=== PATIENT | female | born 1985 | race Caucasian/White ===

== ENCOUNTER 2017-06-03 12:58 | Inpatient (IN) | payer OTHER, SELFPAY ==
[2017-06-03] MEDS ORDERED: Acetaminophen 500 MG TAB ONE (13:20)
[2017-06-03] MEDS ORDERED: cefTRIAXone\\ROCEPHIN 2 GM VIAL ONE (13:41)
[2017-06-03 13:47] LABS: Bilirubin Small (Negative); Blood, Urine Trace (Negative); Glucose, Urine (Dipstick) Negative (Negative); Ketone, Urine Negative (Negative); Nitrite Negative (Negative); Protein, Urine (Dipstick) 30 mg/dL (Neg-Trace)
[2017-06-03 13:57] LABS: Bacteria/HPF Rare-Few HPF (None Seen); Hyaline Casts/LPF 0-3 HYALINE CAST LPF (0-3 Hyaline); Squamous Epithelial 0-3 HPF (0-3)
--- NOTE | 2017-06-03 14:27 | RAD ---
Chest 1 view: HISTORY: Cough. FINDINGS: Heart size and mediastinum within normal limits for portable technique. The lungs are clear of any infiltrative process. There are no significant bony findings. IMPRESSION: No active intrathoracic disease. POS: [facility]
[2017-06-03 15:18] LABS: #Monocytes 1.4 thou/uL (0.11-0.59); %Basophils 0.2 % (0.0-1.0); %Eosinophils 0.1 % (0.0-10.0); %Lymphocytes 10.5 % (21.0-51.0); %Monocytes 14.9 % (0.0-10.0); Hematocrit 31.6 % (36.0-47.0); Mean Platelet Volume 6.5 fL (7.4-10.4); Red Blood Cell (RBC) Count 3.34 mill/uL (4.20-5.40); White Blood Cell (WBC) Count 9.4 thou/uL (4.8-10.8)
[2017-06-03 15:37] LABS: Lactic Acid - Sepsis 0.7 mmol/L (0.5-2.2)
[2017-06-03 15:41] LABS: ALT (SGPT) 43 U/L (8-55); AST (SGOT) 26 U/L (5-34); Alkaline Phosphatase 121 U/L (40-150); Anion Gap 13 mmol/L (10-20); BUN (Urea Nitrogen) 6 mg/dL (7.0-18.7); Bilirubin, Total 0.6 mg/dL (0.2-1.2); Calc. Creatinine Clearance 0 mL/min (70-130); Calcium 7.8 mg/dL (7.8-10.44); Carbon Dioxide 22 mmol/L (22-29); Chloride 102 mmol/L (98-107); Estimated GFR-MDRD Greater than 90; Globulin 3.2 g/dL (2.4-3.5); Protein, Total 6.1 g/dL (6.0-8.3)
[2017-06-03] MEDS ORDERED: Loratadine 10 MG TAB PO PRN (15:50)
[2017-06-03] MEDS ORDERED: Milk Of Magnesia 30 ML UDCUP PO PRN (15:50)
[2017-06-03] MEDS ORDERED: Ondansetron ODT 4 MG TAB PO PRN (15:50)
[2017-06-03] MEDS ORDERED: Senokot 8.6 MG TAB PO PRN (15:50)
[2017-06-03] MEDS ORDERED: Sodium Chloride 0.9% 1,000 ML IV SCH (15:50)
[2017-06-03] MEDS ORDERED: Diabetic Tussin 200 MG/10 ML UDCUP PO PRN (15:50)
[2017-06-03] MEDS ORDERED: Artificial Tears 18 DROP/0.9 ML EA EYE PRN (15:50)
[2017-06-03] MEDS ORDERED: Sodium Chloride 0.65% Nasal 44 ML BOT EA NARE PRN (15:50)
[2017-06-03] MEDS ORDERED: HYDROcodone/Acetaminophen 5/325 mg Tablet PO PRN (15:50)
[2017-06-03] MEDS ORDERED: Eucerin (Mineral Oil/Petrolatum,White) 30 gm Jar TOP PRN (15:50)
[2017-06-03] MEDS ORDERED: Ondansetron HCl/PF 4 MG/2 ML Vial IVP PRN (15:50)
[2017-06-03] MEDS ORDERED: Zolpidem Tartrate 5 MG TAB PO PRN (15:50)
[2017-06-03] MEDS ORDERED: Loperamide HCl 2 MG CAP PO PRN (15:50)
[2017-06-03] MEDS ORDERED: Mag-Al 1200 mg/1200 mg/30 ML UDCUP PO PRN (15:50)
[2017-06-03 15:58] VITALS: BMI 22.3
--- NOTE | 2017-06-03 16:36 | HP ---
PRIMARY CARE PHYSICIAN: [facility] call admission. REASON FOR ADMISSION: Sepsis, urinary tract infection, dehydration. HISTORY OF PRESENT ILLNESS: A 32-year-old female who lives in [facility] who came to the emergency room for evaluation of dysuria, increased frequency for the last one week, the patient has symptoms grad ually getting worse, but for the last 2-3 days symptom is more worse. She started having high-grade fever with chills. Her T. maximum was 102.6. The patient took couple of doses of Bactrim DS, but her fever was not subsiding. She was having high-grade fever constantly and that is why they sent h er to the emergency room for evaluation. The patient also reports that for the last couple of days she is having both sides of back pain more on the left side. She denies any hematuria. She denies any diarrhea, but she does report the nausea and poor appetite. She denies any vomiting. There was no specific relieving factor. Patient's fever was temporarily responding to Tylenol, but the fever kept coming back. Patient was also feeling more fatigued, tired, weak and dizzy. At that point, t he patient was brought to the emergency room for evaluation. In the emergency room, this patient wa s febrile with temperature 102.6, tachycardic, relatively hypotensive. Patient was also clinically appeared dehydrated. REVIEW OF SYSTEMS: Please see my HPI for pertinent positives and negatives. All other review of sy stems reviewed and negative except as mentioned in the HPI. Constitutional: Weight loss or gain, ability to conduct usual activities. Skin: Rash, itching. Eyes: Double vision, pain. ENT/Mouth: Nose bleeding, neck stiffness, pain, tenderness. Cardiovascular: Palpitations, dyspnea on exertion, orthopnea. Respiratory: Shortness of breath, wheezing, cough, hemoptysis, fever or night sweats. Gastrointestinal: Poor appetite, abdominal pain, heartburn, nausea, vomiting, constipation, or diar ti. Genitourinary: Urgency, frequency, dysuria, nocturia. Musculoskeletal: Pain, swelling. Neurologic/Psychiatric: Anxiety, depression. Allergy/Immunologic: Skin rash, bleeding tendency. EMERGENCY ROOM COURSE: Patient was given Rocephin 2 gram, IV fluid 1 liter and Tylenol 1 gram. PAST MEDICAL HISTORY: Scoliosis, osteoarthritis. PAST SURGICAL HISTORY: Cholecystectomy, vaginal births x3 and tonsillectomy. PAST PSYCHIATRIC HISTORY: Anxiety and depression. SOCIAL HISTORY: The patient is currently in [facility]. She has history of drug abuse in the past. Evie jc abuses marijuana. She denies any alcohol abuse. She also smokes cigarettes about a half pack per day. FAMILY HISTORY: No strong family history of premature coronary artery disease, stroke or cancer. ALLERGIES: PENICILLIN. CURRENT HOME MEDICATIONS: The patient was recently prescribed Bactrim DS 1 tablet twice daily. Anali fleming was on ibuprofen and Tylenol p.r.n. basis at [facility] system. PHYSICAL EXAMINATION: VITAL SIGNS: On arrival, blood pressure 98/69, pulse 90, respiratory rate 18, temperature 102.6, sa turation 98% on room air, weight 62.05 kilograms. GENERAL: Patient is currently febrile. SKIN: No obvious acute distress. HEAD: Normocephalic, atraumatic. EYES: Pupils round, reactive to light. Extraocular muscles intact. ENT: Oropharynx within normal limits. Dry appearing mucous membranes. No oral lesions. No pharyn geal erythema. No exudate. NECK: Supple. Range of motion is normal. No meningeal signs of irritation. LUNGS: Clear to auscultation without any rhonchi or rales. CARDIAC: S1, S2 regular. No murmur. No gallop. No rub. ABDOMEN: Soft, bowel sounds present, nontender, nondistended. No organomegaly. No mass. No supra pubic discomfort noted. BACK EXAMINATION: CVA tenderness more on the left side as well as CVA tenderness on the right side. EXTREMITIES: Upper extremity passive movement of all joints are normal. Lower extremity, no edema. Good peripheral pulsation. SKIN: No skin rash. HEMATOLOGICAL SYSTEM: No lymphadenopathy. PSYCHIATRIC: Normal affect. NEUROLOGIC: Nonfocal examination. SKIN: No skin rash. SIGNIFICANT LABS AND IMAGINGS: Chest x-ray based on my review, no acute cardiopulmonary process. C BC: WBC 9.4, hemoglobin 10.8, platelets 183,000. BMP: Sodium 134, potassium 3.0, chloride 102, ca rbon dioxide 22, BUN 6, creatinine 0.62, glucose 103, calcium 7.8. LFT: AST 26, ALT 43, alkaline p hosphatase 121, albumin 2.9. Lactic acid 0.7. Urinalysis suggestive of urinary tract infection. ASSESSMENT AND PLAN: 1. Sepsis. The patient has high-grade fever. Patient has fever for the last several days without any significant improvement. Patient was treated with Bactrim DS and patient has failed outpatient therapy. The source of infection is urinary tract given her symptoms and abnormal urinalysis. The patient will be on Rocephin and ciprofloxacin for dual coverage. We will follow up on blood and uri ne culture result and change antibiotic therapy accordingly. Patient will also receive IV fluid. 2. Urinary tract infection with pyelonephritis. This patient has predominantly right-sided pyelone phritis. We will obtain CT stone protocol to rule out any nephrolithiasis. We will follow up on cu lture result. Patient is kept on broad-spectrum antibiotic therapy with Rocephin and Cipro. Her pa in will be controlled with oral pain medication as well as Toradol on p.r.n. basis. 3. Dehydration. Patient is clinically appeared dehydrated. Patient will be given IV fluid with NS with KCl and will repeat BMP tomorrow. 4. Hyponatremia, hypokalemia. Patient will receive NS with the KCl and will repeat BMP tomorrow. 5. Anemia, normocytic, normochromic. We will continue with ferrous sulfate 325 mg p.o. daily, and Theragran 1 tablet p.o. daily. 6. Tobacco abuse disorder. Smoking cessation counseling given. Healthy lifestyle measures discuss ed with the patient. 7. Deep venous thrombosis prophylaxis. Lovenox 40 mg subcu daily. 8. Gastrointestinal prophylaxis, Pepcid 20 mg p.o. b.i.d. 9. Code status: The patient is FULL CODE. Patient does not have any surrogate decision maker. Disposition plan based on clinical course. We are expecting patient's stay in hospital more than 2 midnights. Plan of care discussed with the patient in detail.
[2017-06-03] MEDS: NS 0.9% w/ 20 MEQ KCL 1,000 ML/1,000 ML BAG IV SCH (17:50)
[2017-06-03] MEDS: Acetaminophen 325 MG TAB PO PRN ×2 (19:24→23:29)
--- NOTE | 2017-06-03 20:12 | CT ---
EXAM: ABDOMEN CT WITHOUT CONTRAST PELVIC CT WITHOUT CONTRAST 06/03/17 COMPARISON: 03/16/13 HISTORY: Urinary tract infection. FINDINGS: ABDOMEN CT: Lung bases are clear. Heart size is normal. No significant pericardial fluid. The visualized aorta h as a normal caliber. No periaortic fat stranding. Gallbladder is surgically absent. The visualized solid organs are unremarkable. Limited evaluation due to lack of IV contrast. Decreased intra-abdominal fat limits evaluation for inflammatory change. There is left perinephric f at stranding. A small amount of fluid in the left and possibly right pericolic gutters is noted. No pelvic mass, lymphadenopathy, or free air. Limited evaluation of the alimentary canal due to lack of oral contrast. Ingested material in the st omach is noted. There are no dilated small bowel loops. Ileocecal junction is normal. There appears to be a normal caliber appendix emanating from the cecal apex. There is a small amount of periappend iceal inflammatory change, nonspecific. There is left perinephric fat stranding. There is mild dilatation of the left intrarenal collecting system. Limited evaluation of the left ureter due to decreased intra-abdominal fat. There are two ca lcifications in the left aspect of the pelvis which have developed since the previous study. There i s a 2 mm and 4 mm calculus. One of the two calculus is felt to be a left ureterovesicular junction c alculus with associated mild hydronephrosis. The right intra and extrarenal collecting system is un remarkable. PELVIC CT: The uterus and adnexa are unremarkable. Intrauterine device is noted. There are no osteoblastic or osteolytic lesions. IMPRESSION: Mild left sided obstructive uropathy. Evaluation of the extrarenal collecting system is limited. The re are two separate calcifications in the left aspect of the pelvis, one of these two calcifications is felt to be the obstructing calculus. Retrograde IVP can be performed. POS: [facility]
[2017-06-03] MEDS: Famotidine 20 MG TAB PO SCH (20:28)
[2017-06-03] MEDS: Ketorolac Tromethamine 30 MG/ML VIAL IVP PRN (23:45)
[2017-06-04] MEDS: NS 0.9% w/ 20 MEQ KCL 1,000 ML/1,000 ML BAG IV SCH ×4 (03:42→15:20)
[2017-06-04 05:32] LABS: Anion Gap 7 mmol/L (10-20); BUN (Urea Nitrogen) 9 mg/dL (7.0-18.7); Calc. Creatinine Clearance 129 mL/min (70-130); Calcium 8.3 mg/dL (7.8-10.44); Carbon Dioxide 27 mmol/L (22-29); Chloride 105 mmol/L (98-107); Estimated GFR-MDRD Greater than 90
[2017-06-04 05:51] LABS: Band 3 % (5-11); Hematocrit 31.9 % (36.0-47.0); Mean Platelet Volume 6.6 fL (7.4-10.4); Neutrophil 61 % (42-75); Red Blood Cell (RBC) Count 3.34 mill/uL (4.20-5.40); White Blood Cell (WBC) Count 11.1 thou/uL (4.8-10.8)
[2017-06-04] MEDS: Ketorolac Tromethamine 30 MG/ML VIAL IVP PRN ×3 (07:19→18:28)
--- NOTE | 2017-06-04 07:45 | PDOC.PN ---
- Subjective Encounter Start Date: 06/04/17 Encounter Start Time: 07:30 -: old records requested/rev pt still has high fever and left back pain, no vomiting Patient seen and examined. No new complaints. No overnight events - Objective Resuscitation Status: Resuscitation Status FULL:Full Resuscitation MAR Reviewed: Yes Vital Signs & Weight: Vital Signs (12 hours) Temp Pulse Resp BP Pulse Ox 06/04/17 07:37 102.3 F H 101 H 16 99/61 98 06/04/17 03:45 98.3 F 72 20 92/59 L 99 06/04/17 00:18 100.5 F H 06/03/17 23:47 103.2 F H 99 20 99/66 100 06/03/17 20:32 100.2 F H Weight Weight 138 lb 1.6 oz I&O: 06/03/17 06/04/17 06/05/17 06:59 06:59 06:59 Intake Total 2724 Output Total 10 Balance 2714 Result Diagrams: 06/04/17 04:28 06/04/17 04:28 Radiology Reviewed by me: Yes (Ct abdomen) Phys Exam - Physical Examination Constitutional: NAD HEENT: PERRLA, moist MMs, sclera anicteric Neck: no JVD, supple Respiratory: no wheezing, no rales, no rhonchi Cardiovascular: RRR, no significant murmur, no rub Gastrointestinal: soft, non-tender, no distention, positive bowel sounds left cva tenderness Musculoskeletal: no edema, pulses present Neurological: non-focal, normal sensation, moves all 4 limbs Psychiatric: normal affect, A&O x 3 Skin: no rash, normal turgor Dx/Plan (1) Sepsis Code(s): A41.9 - SEPSIS, UNSPECIFIED ORGANISM Status: Acute (2) Acute unilateral obstructive uropathy Code(s): N13.9 - OBSTRUCTIVE AND REFLUX UROPATHY, UNSPECIFIED Status: Acute (3) Acute pyelonephritis Code(s): N10 - ACUTE PYELONEPHRITIS Status: Acute (4) Dehydration Code(s): E86.0 - DEHYDRATION Status: Acute (5) Nausea & vomiting Code(s): R11.2 - NAUSEA WITH VOMITING, UNSPECIFIED Status: Acute (6) Hyponatremia Code(s): E87.1 - HYPO-OSMOLALITY AND HYPONATREMIA Status: Acute (7) Hypokalemia Code(s): E87.6 - HYPOKALEMIA Status: Acute (8) Tobacco abuse Code(s): Z72.0 - TOBACCO USE Status: Chronic - Plan cont current plan of care, continue antibiotics * continue rocephin and cipro IV * continue IVF * will consult urology for mild obstructive uropathy * medication reviewed as below * symptomatic treatment * follow culture. Review of Systems - Review of Systems Constitutional: Fever, Weakness. negative: Chills, Sweats, Malaise, Other Respiratory: negative: Cough, Dry, Shortness of Breath, Hemoptysis, SOB with Excertion, Pleuritic Pain, Sputum, Wheezing Cardiovascular: negative: Chest Pain, Palpitations, Orthopnea, Paroxysmal Noc. Dyspnea, Edema, Light Headedness, Other Gastrointestinal: Nausea. negative: Vomiting, Abdominal Pain, Diarrhea, Constipation, Melena, Hematochezia, Other Genitourinary: Dysuria, Frequency. negative: Incontinence, Hematuria, Retention , Other Musculoskeletal: negative: Neck Pain, Shoulder Pain, Arm Pain, Back Pain, Hand Pain, Leg Pain, Foot Pain, Other Skin: negative: Rash, Lesions, Agustin, Bruising, Other - Medications/Allergies Allergies/Adverse Reactions: Allergies Allergy/AdvReac Type Severity Reaction Status Date / Time Penicillins Allergy Verified 06/03/17 16:16 Medications: Current Medications Acetaminophen (Tylenol) 650 mg PO Q4H PRN PRN Reason: Headache/Fever or Pain Last Admin: 06/03/17 23:29 Dose: 650 mg Hydrocodone Bitart/Acetaminophen (Alpine 5/325) 1 tab PO Q4H PRN PRN Reason: Moderate Pain (4-6) Al Hydroxide/Mg Hydroxide (Maalox) 30 ml PO Q6H PRN PRN Reason: Heartburn or Indigestion Artificial Tears (Tears Naturale) 0 drop EA EYE PRN PRN PRN Reason: Dry Eyes Enoxaparin Sodium (Lovenox) 40 mg SC 0900 [facility] Famotidine (Pepcid) 20 mg PO BID [facility] Last Admin: 06/03/17 20:28 Dose: 20 mg Ferrous Sulfate (Feosol) 325 mg PO QAM[facility] Guaifenesin (Robitussin Sf) 200 mg PO Q4H PRN PRN Reason: Cough Ciprofloxacin/Dextrose 400 mg/ (Device) 200 mls @ 200 mls/hr IVPB 0500,1700 [facility] Last Admin: 06/04/17 05:33 Dose: 200 mls Ceftriaxone Sodium 1 gm/ (Sodium Chloride) 100 mls @ 200 mls/hr IVPB 1400 [facility] Potassium Chloride/Sodium Chloride (Ns 0.9% W/ 20 Meq Kcl) 1,000 ml in 1,000 mls @ 125 mls/hr IV .Q8H [facility] Last Admin: 06/04/17 03:42 Dose: 1,000 mls Iron/Minerals/Multivitamins (Theragran M) 1 tab PO DAILY [facility] Ketorolac Tromethamine (Toradol) 15 mg IVP Q6H PRN PRN Reason: Pain Stop: 06/08/17 15:51 Last Admin: 06/04/17 07:19 Dose: 15 mg Loperamide HCl (Imodium) 2 mg PO PRN PRN PRN Reason: Diarrhea/Loose Stools Loratadine (Claritin) 10 mg PO DAILYPRN PRN PRN Reason: Sinus Symptoms Magnesium Hydroxide (Milk Of Magnesium) 30 ml PO DAILYPRN PRN PRN Reason: Constipation Mineral Oil/White Petrolatum (Eucerin Cream) 0 gm TOP BIDPRN PRN PRN Reason: Dry Skin Ondansetron HCl (Zofran Odt) 4 mg PO Q6H PRN PRN Reason: Nausea/Vomiting Ondansetron HCl (Zofran) 4 mg IVP Q6H PRN PRN Reason: Nausea/Vomiting Senna (Senokot) 2 tab PO HSPRN PRN PRN Reason: Constipation Sodium Chloride ([place] Nasal [place] 0.65%) 0 ml EA NARE QIDPRN PRN PRN Reason: Nasal Congestion Zolpidem Tartrate (Ambien) 5 mg PO HSPRN PRN PRN Reason: Insomnia
[2017-06-04] MEDS: Ferrous Sulfate 325 MG TAB PO SCH (08:11)
[2017-06-04] MEDS: Famotidine 20 MG TAB PO SCH ×2 (08:11→21:53)
[2017-06-04] MEDS: Enoxaparin Sodium 40 MG/0.4 ML SYRINGE SC SCH (08:11)
[2017-06-04] MEDS: Multivitamin W/ Minerals 1 TAB PO SCH (08:11)
[2017-06-04] MEDS ORDERED: cefTRIAXone\\ROCEPHIN 1 GM in Sodium Chloride 0.9% 100 ML IVPB SCH (14:00)
[2017-06-04] MEDS ORDERED: Phenazopyridine HCl 97.5 MG TABLET PO SCH (15:00)
[2017-06-04] MEDS ORDERED: Sodium Chloride 0.9% 1,000 ML IV SCH (15:15)
[2017-06-04] MEDS ORDERED: cefTRIAXone\\ROCEPHIN 2 GM in Sodium Chloride 0.9% 100 ML IVPB SCH (15:15)
[2017-06-04] MEDS: Tamsulosin HCl 0.4 MG CAP PO SCH (15:31)
--- NOTE | 2017-06-04 16:23 | RAD ---
RADIOGRAPH ABDOMEN 1 VIEW: 06/04/17 HISTORY: Left ureteral calculus. FINDINGS: IUD in the pelvis. Normal bowel gas pattern. There are multiple phleboliths in the pelvis. The tiny, approximately 1 or 2 mm calculus in the very distal left ureter at or near the UVJ, demonstrated on the CT, would be very difficult to identify on this plain radiograph, because of its small size and because of multiple phleboliths. Bowel gas pattern is normal. Cholecystectomy clips. IMPRESSION: 1. Intrauterine device. 2. The presence of multiple phleboliths makes it difficult to identify the tiny calculus at the left ureterovesical junction. POS: [facility]
--- NOTE | 2017-06-04 18:15 | CON ---
DATE OF HOSPITAL ADMISSION: 06/03/2017 DATE OF CONSULTATION REQUESTING REPORT: 06/04/2017 REASON FOR CONSULTATION: 1. Left flank pain. 2. Concerns for possible left ureteral calculus. 3. Urosepsis. HISTORY OF PRESENT ILLNESS: Ms. Sylvia Banuelos is a very pleasant 32-year-old Micron[place] speaking [place] c female currently incarcerated at the [facility] in [place], who presents with approximately 2-ye ar history of ongoing left-sided flank pain, which became worse over the last 8 days. She developed severe left-sided flank pain with associated fever. She received via the emergency department and there was noted there to have a severe left flank pain with an elevated ANC of 7. The patient also was febrile developing a 103.1 fever last night. Patient was admitted and placed on intravenous ant ibiotics with combined ceftriaxone and ciprofloxacin and has improved. Patient reports that her larry n symptoms are somewhat improved to more severe about every 15 minutes the past. She is having colt re pain symptoms about every 3 to 4 hours now, which is significantly improved from what she had bef ore. She continues to complain of left-sided flank pain. Patient reports she had severe nausea abo ut 5 days ago and this has subsequently resolved. FAMILY MEDICAL HISTORY: Both her parents are age 52. Her mother has diabetes and hypertension. Steven rodriguez's father is estranged from the family and patient does not talk to her father, does not know a ny of his medical history. She has multiple siblings, all of whom are healthy. SOCIAL HISTORY: Patient is currently incarcerated in the [facility], not currently smoking or usi ng alcohol. GYNECOLOGIC: Patient is a 4, para 3 with 1 miscarriage. She uses Mirena control IUD. She reports irregular menstrual and last had a cycle about 17 days ago. PAST MEDICAL HISTORY: No prior history of kidney stones, multiple gynecologic deliveries with no hi story of gynecologic surgeries. PAST SURGICAL HISTORY: Patient did have a cholecystectomy. No other surgeries by her report other than vaginal deliveries. REVIEW OF SYSTEMS: Constitutional: Patient reports fever and chills. Gastrointestinal: Positive for nausea and vomiting, which has largely subsided at this point. Neurologic: No complaints. Pul monary: Negative. Cardiac: Negative. Gastrointestinal: No reports of diarrhea or constipation. Musculoskeletal: Negative. Gynecologic: Patient reports about a 2 to 3 year history of chronic p elvic pain symptoms and also about a 2-year history of left-sided flank pain. Psychologic: No comp laints at present. Patient not reporting depression symptoms or other issues. PHYSICAL EXAMINATION: VITAL SIGNS: Patient's T-max during this hospitalization up to 103.1 degrees Fahrenheit, now down t o 98.8 degrees F. Blood pressure currently 91/57, pulse 77, respirations 18, O2 saturation on room air is 99%. HEENT: Extraocular movements are intact. Sclerae are anicteric. Oropharynx is clear. NECK: Supple. LUNGS: Clear to auscultation bilaterally. CARDIAC: Regular rate and rhythm without murmur, rub, or gallop. BACK: There is positive left-sided costovertebral angle tenderness. No costovertebral angle tender ness on the right side. No gross bony abnormality. ABDOMEN: Soft and nontender. Patient has had previous cholecystectomy. PELVIC: Deferred to the operative suite. EXTREMITIES: Appear within normal limits. There is no clubbing, cyanosis, or edema of lower extrem ities. PSYCHOLOGIC: Anxiety appears reasonable. Patient appears competent for consent for herself. LABORATORY STUDIES: White count initially was low with elevated ANC, white count increased to 11,10 0 with 3 bands today. Serum chemistry shows current sodium of 135, potassium of 4.0. The BUN at ad mission was 6 with a creatinine of 0.62 indicating a BUN to creatinine ratio of 10. The patient's e stimated glomerular filtration rate is greater than 90. Microbiology: Patient has a Gen-Probe test suggesting E. coli present in her urine. CT scan of the abdomen and pelvis obtained on 06/03/2017 shows a 4 mm calcification roughly at the u reterovesical junction on the left side. The patient appears to have mild left-sided obstructive ch anges with some dilation. There was no contrast used on the study so overall evaluation of the left urinary tract is incomplete. There are actually two separate calcifications in the left aspect of the pelvis and one of these appears to be in line with the ureter. Retrograde evaluation would be r ecommended to further evaluate that. ASSESSMENT AND PLAN: 1. Probable left ureterovesical junction 4 mm calculus. We will make an attempt at trial of passag e and try that document radiodensity associated with that using KUB imaging studies. If the patient has non-progression, given the presence of apparent clinical sepsis presentation. I would recommen d at least cystoscopy and stenting possibly balloon dilation, stone extraction and stent as well. R etrograde evaluation will probably find the stone within 4-6 cm of the patient's ureteric opening. 2. Planning for stenting. I would recommend the patient be started on Azo and VESIcare prior to an y OR trip. 3. Sepsis. Patient has apparent Escherichia coli, which appears to be responding to combination of Rocephin and ciprofloxacin. Narrowing of the antibiotic spectrum would be appropriate once the cul ture results are known.
[2017-06-04] MEDS: Acetaminophen 325 MG TAB PO PRN (18:52)
[2017-06-04] MEDS: Phenazopyridine HCl 97.5 MG TABLET PO SCH (21:53)
[2017-06-04] MEDS: TROSPIUM 20 MG TABLET PO SCH (21:53)
[2017-06-05] MEDS: Sodium Chloride 0.9% 1,000 ML IV SCH ×3 (00:47→13:49)
[2017-06-05] MEDS: Ketorolac Tromethamine 30 MG/ML VIAL IVP PRN (00:47)
[2017-06-05 05:17] LABS: #Eosinphils 0.1 thou/uL (0.0-0.7); #Lymphocytes 2.2 thou/uL (1.20-3.40); #Monocytes 0.9 thou/uL (0.11-0.59); #Neutrophils 5.9 thou/uL (1.40-6.50); %Basophils 0.4 % (0.0-1.0); %Eosinophils 0.7 % (0.0-10.0); %Lymphocytes 24.2 % (21.0-51.0); %Monocytes 9.4 % (0.0-10.0); Hematocrit 31.5 % (36.0-47.0); Mean Platelet Volume 6.8 fL (7.4-10.4)
[2017-06-05 05:45] LABS: ALT (SGPT) 27 U/L (8-55); AST (SGOT) 12 U/L (5-34); Alkaline Phosphatase 118 U/L (40-150); Anion Gap 10 mmol/L (10-20); BUN (Urea Nitrogen) 9 mg/dL (7.0-18.7); Bilirubin, Total 0.3 mg/dL (0.2-1.2); Calc. Creatinine Clearance 135 mL/min (70-130); Calcium 8.5 mg/dL (7.8-10.44); Carbon Dioxide 24 mmol/L (22-29); Chloride 107 mmol/L (98-107); Estimated GFR-MDRD Greater than 90; Globulin 3.2 g/dL (2.4-3.5); Protein, Total 5.8 g/dL (6.0-8.3)
[2017-06-05] MEDS: Acetaminophen 325 MG TAB PO PRN (07:25)
[2017-06-05] MEDS: Ferrous Sulfate 325 MG TAB PO SCH (07:59)
[2017-06-05] MEDS: Enoxaparin Sodium 40 MG/0.4 ML SYRINGE SC SCH (07:59)
[2017-06-05] MEDS: Multivitamin W/ Minerals 1 TAB PO SCH (07:59)
[2017-06-05] MEDS: Tamsulosin HCl 0.4 MG CAP PO SCH (08:01)
[2017-06-05] MEDS: Phenazopyridine HCl 97.5 MG TABLET PO SCH (08:01)
[2017-06-05] MEDS: TROSPIUM 20 MG TABLET PO SCH (08:01)
[2017-06-05] MEDS: Famotidine 20 MG TAB PO SCH (08:01)
[2017-06-05] MEDS ORDERED: Tamsulosin HCl 0.4 MG CAP PO SCH (09:00)
[2017-06-05] MEDS ORDERED: cefTRIAXone\\ROCEPHIN 1 GM VIAL ONE (09:04)
[2017-06-05] MEDS ORDERED: Sodium Chloride 0.9% 100 ML ONE (09:04)
[2017-06-05] MEDS ORDERED: Ondansetron HCl/PF 4 MG/2 ML Vial IVP PRN (09:19)
[2017-06-05] MEDS ORDERED: Promethazine HCl 25 MG/ML VIAL IM PRN (09:19)
[2017-06-05] MEDS ORDERED: Promethazine HCl 25 MG/ML VIAL SLOW IVP PRN (09:19)
--- NOTE | 2017-06-05 09:38 | RAD ---
RADIOGRAPH ABDOMEN 1 VIEW: Date: 06/05/17 Time: 0813 hours HISTORY: 32-year-old female with left distal ureteral calculus. COMPARISON: 06/04/17 at 1547 hours. FINDINGS: There is a now a greater amount of stool and greater amount of bowel gas, throughout the colon. No e vidence of small bowel dilation. Cholecystectomy clips. IUD. Multiple phleboliths in the pelvis. The tiny, approximately 1 mm, calculus at the left ureterovesical junction would be very difficult to i dentify on plain radiography. IMPRESSION: 1. The tiny, approximately 1 mm calculus at the left ureterovesical junction demonstrated on CT wou ld be very difficult to identify on KUB. 2. Interval change in bowel gas pattern, raising the possibility of constipation. 3. Intrauterine device. 4. Status post cholecystectomy. POS: [facility]
[2017-06-05] MEDS ORDERED: Fentanyl 100 MCG/2 ML VIAL ONE ×2 (10:00→12:15)
[2017-06-05] MEDS ORDERED: Iothalamate Meglumine 60% 50 ML VIAL FS ONE (10:40)
[2017-06-05] MEDS ORDERED: Dexamethasone 20 MG/5 ML VIAL ONE (10:43)
[2017-06-05] MEDS ORDERED: Propofol 200 MG/20 ML VIAL ONE (10:43)
[2017-06-05] MEDS ORDERED: Ondansetron HCl/PF 4 MG/2 ML Vial ONE (10:43)
[2017-06-05] MEDS ORDERED: Ketorolac Tromethamine 30 MG/ML VIAL ONE (10:43)
[2017-06-05] MEDS ORDERED: B & O ONE (11:32)
[2017-06-05] MEDS ORDERED: Phenazopyridine HCl 97.5 MG TABLET ONE (12:14)
[2017-06-05] MEDS ORDERED: TROSPIUM 20 MG TABLET PO SCH (12:15)
[2017-06-05] MEDS ORDERED: Phenazopyridine HCl 97.5 MG TABLET PO SCH (12:30)
--- NOTE | 2017-06-05 13:52 | RAD ---
RETROGRADE PYELOGRAM 9 VIEWS: Date: 06/05/17 HISTORY: 32-year-old female with obstructing distal left ureteral calculus. FINDINGS: Initially, catheterization of the left distal ureter is achieved, followed by contrast injection int o the minimally prominent left ureter, then placement of a guidewire which ascends the left ureter. Later images demonstrate a left nephroureteral stent. The contrast in the ureter appears to terminat e at one of the calcifications in the left hemipelvis which was thought to be a phlebolith on prior KUB's. The guidewire is located slightly medial to this calcification. IMPRESSION: Placement of left nephroureteral stent. POS: [facility]
--- NOTE | 2017-06-05 15:30 | DIS ---
DATE OF ADMISSION: 06/03/2017 DATE OF DISCHARGE: 06/05/2017 PRIMARY CARE PHYSICIAN: [facility] call admission. DISCHARGE DISPOSITION: Assisted. PRIMARY DISCHARGE DIAGNOSES: 1. Sepsis. 2. Acute pyelonephritis. 3. Acute unilateral obstructive uropathy. 4. Dehydration. 5. Hypokalemia. 6. Hyponatremia. 7. Nausea and vomiting, resolved. SECONDARY DISCHARGE DIAGNOSIS: Tobacco abuse disorder. PRIMARY PROCEDURE/OPERATION: Cystoscopy. RADIOLOGICAL INVESTIGATION: Abdomen and pelvis CT scan, abdomen x-ray, retrograde pyelogram. SIGNIFICANT LABORATORY DATA: WBC 9.0, hemoglobin 10.5, and platelets 231. Sodium 137, potassium 3. 9, BUN 9, creatinine 0.59, calcium 8.5, AST 12, ALT 27, alkaline phosphatase 118. Urinalysis sugges tive of UTI. Urine culture grew E. coli. Blood culture negative. DISCHARGE MEDICATIONS: Ciprofloxacin 500 mg p.o. b.i.d. for 7 days, [place] one tablet q.4 hourly p.r .n., ferrous sulfate 325 mg p.o. daily, ibuprofen 400 mg p.o. q.6 hourly p.r.n., AZO 97.5 mg p.o. b. i.d., Tylenol 1 g p.o. q.6 hourly p.r.n. CONTRAINDICATIONS: None. CODE STATUS: FULL CODE. INPATIENT PLATE HANGER: Dr. Esteban Morales was consulted who did cystoscopy. TEST RESULTS PENDING ON DISCHARGE: Vaginal organism culture. ALLERGIES: PENICILLIN. DISCHARGE PLAN: Post hospital, the patient is discharged back to [facility] and she will follow up with Francine Moarles in 2 weeks. HOSPITAL COURSE: A 32-year-old female who lives at [facility]. She was admitted by me for UTI symptoms. The patient was also having pyelonephritis. We did CT stone protocol and that showed unilateral ob structive uropathy and that is why we consulted Dr. Orellana, who did cystoscopy and stent placement. He was suspecting pelvic inflammatory disease and that is why necessary testing was sent. Official report is still pending. Patient was advised to follow with Dr. Esteban Morales for followup on culture results for pelvic inflammatory disease. The patient was given Rocephin and Cipro while in [facility]. On discharge, we changed to p.o. Cipro for another few more days. Patient is afebrile while in hospital. She is hemodynamically stable. The patient is seen and examined at bedside today. Doris jc see my progress note from today for further details.
[2017-06-05 15:54] VITALS: BP 101/68; TEMP 98.2
--- NOTE | 2017-06-05 19:48 | CON ---
DATE OF CONSULTATION: 06/05/2017 Please see my chart notes from this morning. INITIAL REASON FOR CONSULTATION: 1. Left-sided flank pain, acute over the last 8 days and previously present for about 2 years. 2. Left hydroureter and hydronephrosis extending into the bladder suggestive of ureterovesical junc tion calculus. 3. Left pyelonephritis with associated fever and elevated white count. BRIEF HISTORY: Ms. Sylvia Banuelos is a very pleasant 32-year-old [facility] inmate with left-sided fl ank pain symptoms. I have evaluated Ms. Banuelos yesterday, but she had been eating, was not suitable for operative evaluation. We did obtain 2 KUB imaging studies overnight, which basically show phle boliths. Patient did have a CT scan previously performed, which suggests the possibility of a punct ate calculus obstructing the left ureter. We were not able to observe those on either the KUB imagi ng studies and therefore cannot measure progression. Patient does have continued left-sided flank p ain and positive costovertebral angle tenderness on the left side as noted below. The patient discu ssed with us the various options and opted to proceed to the operative suite, which is planned. PHYSICAL EXAMINATION: VITAL SIGNS: Temperature is 99.3 with a T-max of 100.4F overnight, pulse 96, respirations 17, O2 sa turation on room air is 97% and blood pressure is 114/69. HEAD, EYES, EARS, NOSE, AND THROAT: Extraocular movements are intact. Sclerae are anicteric. Orop harynx is clear. NECK: Supple. LUNGS: Clear to auscultation bilaterally. CARDIAC: Regular borderline pulse rate. ABDOMEN: Soft and nontender. On the left side, there is mild left-sided tenderness in the left low er quadrant. BACK: There is positive left-sided costovertebral angle tenderness this morning. PELVIC: Deferred to the operative suite. EXTREMITIES: Appear within normal limits. EMILY hose and sequential compression devices were in plac e and operational. ASSESSMENT AND PLAN: 1. Persistent left-sided flank pain symptoms despite a negative KUB imaging studies and with a posi tive long-term history of chronic left-sided pelvic pain symptoms. The patient will be explored by retrograde pyelography, possible ureteroscopy today. Please see the separately dictated note for at. 2. Chronic pelvic pain symptomatology. Patient should be evaluated carefully for the possibility o f pelvic inflammatory disease based on the history. I did review the patient's [facility] record chart and found that the patient had actually been seen in 2015 for left-sided flank pain symptoms as well, which were thought to be musculoskeletal at that point. Total of more than 35 minutes of consultation time was spent in evaluation and assessment on the [facility] ient today.
[2017-06-05] MEDS ORDERED: Ciprofloxacin 500 MG TAB PO SCH (20:00)
--- NOTE | 2017-06-05 20:38 | OP ---
DATE OF PROCEDURE: 06/05/2017 DATE OF HOSPITAL ADMISSION: 06/03/2017 PREPROCEDURAL DIAGNOSES: 1. Left-sided hydronephrosis with probable pyelonephritis and fever, N13.2. 2. Possible left ureteral calculus, N20.1. 3. Chronic left-sided pelvic pain for fever of approximately 2 years, R10.32. POSTPROCEDURAL DIAGNOSES: Will be the followin. 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 2. History of left ureterovesical junction stone, N20.1. 3. Left-sided hydronephrosis with pyelonephritis, N13.2. 4. Chronic left-sided pelvic pain, R10.32. PROCEDURES PERFORMED: 1. Cystourethroscopy with left-sided ureteroscopy, diagnostic, 41989. 2. Cystourethroscopy with left ureteral stricture dilation, 77959. 3. Cystourethroscopy with left-sided stent placement, 90102. 4. Left-sided retrograde pyelography, 05963. SURGEON: Andrew Orellana M.D. VICE PRESIDENT QUALITY IMPROVEMENT SURGEON: None. ESTIMATED BLOOD LOSS: 0 mL. SPECIMENS RECOVERED: 1. Urine for culture acquired from the left ureter above the level of obstruction. This was clear and did not suggest recurrent infections. 2. Cervical swabs obtained due to pelvic discharge and chronic pelvic pain, symptoms for culture, T richomonas assessment, GC and chlamydia by nucleic acid test. ESTIMATED BLOOD LOSS: 0 mL. OPERATIVE FINDINGS: 1. Cervical discharge with known intrauterine device. 2. Left ureteral stricture at the UPJ, possibly secondary to passed stone or PID. 3. Left ureter dilation with balloon followed by stent placement. The patient will need to return to clinic for a cystoscopy and stent removal in about 2 weeks' time. 4. Left hydronephrosis without drainage during observed, evaluation after retrograde contrast applications. 5. No fluoroscopic or ureteroscopic evidence of residual stone. HISTORY OF PRESENT ILLNESS: Ms. Sylvia Banuelos is a pleasant 32-year-old white female who presented wi th signs and symptoms of sepsis. She was treated initially with Rocephin plus ciprofloxacin, had el evated white count and fever. She eventually defervesced and had continuous left-sided pelvic pain symptoms. The patient also reported radiation into her left back suggestive of obstruction. Imagin g studies suggested hydronephrosis on the left side and possibility of one or more calcific densitie s in the pelvis, although these cannot be discriminated from phleboliths. The patient continued to have left-sided flank pain symptoms and opted to proceed to the operating room for evaluation, which was done today. TECHNICAL PROCEDURE: The patient was appropriately identified in the preoperative holding area. TE D hose and sequential compression devices were applied to the bilateral lower extremities. Patient received Rocephin intravenously and ciprofloxacin and was transported to the operative suite. Gener al anesthesia was established using LMA airway. The patient was repositioned in the supine lithotom y position and prepped and draped in the usual sterile fashion. Cystoscopic assessment was performe d using a 22-Nepalese cystoscope which was introduced using an obturator. The patient's bladder was f ree of any evidence of stone. There was no inflammation around the left or right ureters. The left ureter did not efflux during a 5 minute period of initial evaluation nor later after application of retrograde contrast. We applied a 0.035 angled Glidewire to the left ureteric opening using a 5-Fr ench Pollack catheter. The Glidewire was advanced into the patient's left collecting system. Urine was collected from the patient's left ureter by aspiration. This urine appeared clear and did not suggest active infection. This was sent for culture. A retrograde pyelogram evaluation showed hydr onephrosis extending to the patient's ureterovesical junction. This did not drain after application of the contrast for a period of more than 5 minutes of fluoroscopic evaluation. The patient was no t seemed to have any ureteral jet cystoscopically nor with radiography. The patient's left ureter w as then evaluated and the strictured area close to the ureterovesical junction was balloon dilated. We placed two 0.035 angled Glidewires in the patient's left ureter which were advanced to the level of the renal pelvis. The patient's upper ureter is relatively tortuous with several angulations, b ut we were able to advance a wire into the collecting system without undue difficulty. The patient' s left ureterovesical junction was balloon dilated using an 18-Nepalese x 4 cm dilation balloon. We t hen performed rigid ureteroscopy evaluating for residual calculus. We found none in the left ureter up to the level of the ureteropelvic junction near the kidney. We did not see any evidence of ston e. The ureter was dilated above the level of the iliac vessels that was narrowed and had undergone balloon dilation below this level allowing ureteroscopic evaluation and assessment. We did not iden tify any stones in the ureter fluorographically or with ureteroscopic evaluation. Several phlebolit hs previously seen on KUB imaging studies and CT scans were observed; however, there were no stones seen. There were no initial inflammatory changes around the left ureteric opening to suggest passag e of a stone. Instead, this appears to be a stricturing process fluid in the left ureter. The joel ent reports a relatively long period of obstructive symptoms on the left side with radiation into he r left back and in her left pelvis. During the course of evaluation, we noted wide purulent pelvic discharge. The patient's cystoscopic procedure was completed and we did collect swabs later. A 4.5 Nepalese x 28 cm left double-J uretera l stent was placed without string. Good coil was obtained in the patient's renal pelvis and in the bladder. The bladder was completely drained at the close of the procedure. A belladonna \T\ opioid suppository was applied per rectum. We changed gloves and performed pelvic examination. The patie nt's IUD was visible fluoroscopically and the string from this was visible at the cervical os. Ther e was some purulent discharge. We obtained swabs for Trichomonas, GC and chlamydia as well as cultu re from this area. These were sent as separate specimens from the patient's left ureter culture. The patient was returned to the full supine position and awakened and LMA airway removed in the oper ative suite. She was transported to the postoperative recovery area breathing on her own. COMPLICATIONS: None. SPECIMENS REMOVED: 1. Left ureteral urine for culture, this was cleared and did not appear to be infected. 2. Cervical swabs. A. For culture. B. Trichomonas shamar. C. GC and chlamydia swabs. ASSESSMENT: 1. Ureteral stricture uncertain origin, possibly due to stone or pelvic inflammatory disease due to extrinsic cause. 2. No inflammatory changes in the left ureter to suggest passage of a kidney stone. 3. Hydronephrosis of the left collecting system secondary to distal ureteral stricture at left uret eropelvic junction. 4. No fluoroscopic or ureteroscopic evidence of calculi.
[2017-06-05] MEDS ORDERED: FLU VACC QS2017-18 36 mo. & older 0.5 ML SYRINGE IM ONE (21:00)
== END 2017-06-05 16:09 | DRG 872 ==
LOC: ERS 12:58 → T4-B 14:33
PROVIDERS: ADMIT Internal Medicine; ATTEND Internal Medicine
PROC: 0T778DZ Dilation of Left Ureter with Intraluminal Device, Via Natural or Artificial Opening Endoscopic (ICD-10-PCS; principal; 2017-06-05)
PROC: BT1F0ZZ Fluoroscopy of Left Kidney, Ureter and Bladder using High Osmolar Contrast (ICD-10-PCS; 2017-06-05)
DX: A41.9 Sepsis, unspecified organism (principal); E87.1 Hypo-osmolality and hyponatremia; N10 Acute pyelonephritis; N13.2 Hydronephrosis with renal and ureteral calculous obstruction; E86.0 Dehydration; E87.6 Hypokalemia; D64.9 Anemia, unspecified; F17.210 Nicotine dependence, cigarettes, uncomplicated; Z88.0 Allergy status to penicillin; Z23 Encounter for immunization; B96.20 Unspecified Escherichia coli [E. coli] as the cause of diseases classified elsewhere
CPT/HCPCS: 36415; 71010; 74000; 74176; 74420; 80048; 80053; 81003; 81015; 81025; 83605; 85025; 87040; 87070; 87077; 87086; 87186; 87205; 87480; 87491; 87510; 87591; 87660; 96361; 96365; C1758; C1769; J0696; J0744; J1100; J1650; J1885; J2405; J2704; J3010; J7050; Q9961

== ENCOUNTER 2018-09-28 09:32 | Emergency (ER) | payer SELFPAY ==
[2018-09-28 10:23] LABS: Bilirubin Negative (Negative); Blood, Urine Trace (Negative); Clarity CLEAR (Clear); Glucose, Urine (Dipstick) Negative (Negative); Leukocyte Negative (Negative); Nitrite Negative (Negative); Protein, Urine (Dipstick) Negative (Neg-Trace); Specific Gravity, Urine 1.025 (1.002-1.036); Urobilinogen 0.2 mg/dL (0.2-1.0); pH, Urine 6.5 (5.0-9.0)
[2018-09-28 10:28] LABS: Bacteria/HPF None Seen HPF (None Seen); Hyaline Casts/LPF 4-6 HYALINE CAST LPF (0-3 Hyaline); Pathc Cast-AUWi Flag 1.45 (0-2.49); RBC/HPF 0-3 HPF (0-3); WBC/HPF 0-3 HPF (0-3)
[2018-09-28 10:48] LABS: #Lymphocytes 1.7 thou/uL (1.20-3.40); #Monocytes 0.4 thou/uL (0.11-0.59); #Neutrophils 3.7 thou/uL (1.40-6.50); %Basophils 0.5 % (0.0-1.0); %Eosinophils 0.5 % (0.0-10.0); %Lymphocytes 28.9 % (21.0-51.0); %Monocytes 6.8 % (0.0-10.0); %Neutrophils 63.3 % (42.0-75.0); Hemoglobin 13.2 g/dL (12.0-16.0); Mean Corpuscular HGB CONC 34.2 g/dL (32.0-36.0); Mean Corpuscular Hemoglobin 32.6 pg (27.0-31.0); Mean Corpuscular Volume 95.2 fL (78.0-98.0); Mean Platelet Volume 7.3 fL (7.4-10.4); Platelet Count 226 thou/uL (130-400); RBC Distribution Width 11.8 % (11.5-14.5); Red Blood Cell (RBC) Count 4.06 mill/uL (4.20-5.40); White Blood Cell (WBC) Count 5.9 thou/uL (4.8-10.8)
[2018-09-28 11:09] LABS: BHCG - Serum Negative (NEGATIVE); Pregs Control Background? CLEAR/WHITE (CLR/WHITE); Pregs Control Bar Appear? YES (CONTROL BAR)
--- NOTE | 2018-09-28 11:44 | ULT ---
PELVIC ULTRASOUND: Date: 09/28/18 HISTORY: Pelvic pain x3 weeks. FINDINGS: Real-time imaging of the pelvis was obtained both transabdominally, as well as with an endovaginal pr obe. The uterus measures 4.4 x 5.4 x 7.8 cm. Endometrium is in the 5.0 mm range. Both the right and left ovaries are identified and appear normal in size. DOPPLER EVALUATION WITH SPECTRAL ANALYSIS: Normal flow is shown to the adnexal region. It was difficult to obtain flow in the left adnexal regio n, mainly due to its posterior location. Incidental note is made of nabothian-type cyst. An IUD is also present within the endometrium. IMPRESSION: 1. Nabothian cyst. 2. IUD in place in the endometrium I the fundus region of the uterus. POS: [facility]
[2018-09-29 20:38] LABS: Chlamydia by PCR Not Detected (NotDetected); GC by PCR Not Detected (NotDetected)
== END 2018-09-28 12:16 | disposition home or self-care (01) ==
LOC: ERS 09:32
DX: N76.0 Acute vaginitis (principal); F41.9 Anxiety disorder, unspecified; F32.9 Major depressive disorder, single episode, unspecified; F17.210 Nicotine dependence, cigarettes, uncomplicated
CPT/HCPCS: 36415; 76856; 81003; 81015; 84703; 85025; 87480; 87491; 87510; 87591; 87660

== ENCOUNTER 2018-10-20 22:42 | Emergency (ER) | payer SELFPAY ==
[2018-10-20 23:18] LABS: #Basophils 0.1 thou/uL (0.0-0.2); #Lymphocytes 2.4 thou/uL (1.20-3.40); #Monocytes 0.5 thou/uL (0.11-0.59); #Neutrophils 3.4 thou/uL (1.40-6.50); %Basophils 1.1 % (0.0-1.0); %Eosinophils 0.7 % (0.0-10.0); %Lymphocytes 37.9 % (21.0-51.0); %Monocytes 7.2 % (0.0-10.0); %Neutrophils 53.2 % (42.0-75.0); Hemoglobin 12.3 g/dL (12.0-16.0); Mean Corpuscular HGB CONC 33.6 g/dL (32.0-36.0); Mean Corpuscular Hemoglobin 31.8 pg (27.0-31.0); Mean Corpuscular Volume 94.8 fL (78.0-98.0); Mean Platelet Volume 7.4 fL (7.4-10.4); Platelet Count 198 thou/uL (130-400); RBC Distribution Width 11.6 % (11.5-14.5); Red Blood Cell (RBC) Count 3.85 mill/uL (4.20-5.40); White Blood Cell (WBC) Count 6.3 thou/uL (4.8-10.8)
[2018-10-20 23:31] LABS: BHCG - Serum Negative (NEGATIVE); Pregs Control Background? CLEAR/WHITE (CLR/WHITE); Pregs Control Bar Appear? YES (CONTROL BAR)
== END 2018-10-20 23:43 | disposition home or self-care (01) ==
LOC: ERS 22:42
DX: N93.9 Abnormal uterine and vaginal bleeding, unspecified (principal); M19.90 Unspecified osteoarthritis, unspecified site; F41.9 Anxiety disorder, unspecified; F32.9 Major depressive disorder, single episode, unspecified; F17.210 Nicotine dependence, cigarettes, uncomplicated; Z79.899 Other long term (current) drug therapy
CPT/HCPCS: 36415; 84703; 85025; 99284

== ENCOUNTER 2018-11-28 19:06 | Emergency (ER) | payer SELFPAY ==
[2018-11-28] MEDS ORDERED: Ketorolac Tromethamine 30 MG/ML VIAL ONE (21:10)
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
== END 2018-11-28 22:09 | disposition home or self-care (01) ==
LOC: ERS 19:06
DX: M54.6 Pain in thoracic spine (principal); M79.632 Pain in left forearm; F32.9 Major depressive disorder, single episode, unspecified; F41.9 Anxiety disorder, unspecified; F17.210 Nicotine dependence, cigarettes, uncomplicated; M41.9 Scoliosis, unspecified; M19.90 Unspecified osteoarthritis, unspecified site; Z79.899 Other long term (current) drug therapy; V43.62XA Car passenger injured in collision with other type car in traffic accident, initial encounter
CPT/HCPCS: 72072; 96372; J1885

== ENCOUNTER 2018-12-14 19:19 | Emergency (ER) | payer SELFPAY | END 2018-12-14 21:12 | disposition home or self-care (01) | LOC: ERS 19:19 | DX: K05.10 Chronic gingivitis, plaque induced (principal); F31.9 Bipolar disorder, unspecified; F41.9 Anxiety disorder, unspecified; F20.9 Schizophrenia, unspecified; I10 Essential (primary) hypertension; M41.9 Scoliosis, unspecified; M19.90 Unspecified osteoarthritis, unspecified site; F17.210 Nicotine dependence, cigarettes, uncomplicated; Z79.899 Other long term (current) drug therapy | CPT/HCPCS: 99283 ==

== ENCOUNTER 2019-03-07 18:25 | Emergency (ER) | payer SELFPAY | END 2019-03-07 22:05 | disposition home or self-care (01) | LOC: ERS 18:25 | DX: T78.40XA Allergy, unspecified, initial encounter (principal); I10 Essential (primary) hypertension; F41.9 Anxiety disorder, unspecified; F31.9 Bipolar disorder, unspecified; F20.9 Schizophrenia, unspecified; F17.210 Nicotine dependence, cigarettes, uncomplicated | CPT/HCPCS: 99283 ==

== ENCOUNTER 2019-04-05 20:47 | Emergency (ER) | payer SELFPAY | END 2019-04-05 21:22 | disposition home or self-care (01) | LOC: ERS 20:47 | DX: L50.0 Allergic urticaria (principal); F41.9 Anxiety disorder, unspecified; F31.9 Bipolar disorder, unspecified; F20.9 Schizophrenia, unspecified; I10 Essential (primary) hypertension; F17.210 Nicotine dependence, cigarettes, uncomplicated | CPT/HCPCS: 99281 ==

== ENCOUNTER 2019-05-03 19:36 | Emergency (ER) | payer SELFPAY | END 2019-05-03 20:15 | disposition home or self-care (01) | LOC: ERS 19:36 | DX: L50.9 Urticaria, unspecified (principal); I10 Essential (primary) hypertension; M19.90 Unspecified osteoarthritis, unspecified site; F31.9 Bipolar disorder, unspecified; F41.9 Anxiety disorder, unspecified; F20.9 Schizophrenia, unspecified; F17.210 Nicotine dependence, cigarettes, uncomplicated; Z79.899 Other long term (current) drug therapy | CPT/HCPCS: 99282 ==

== ENCOUNTER 2019-07-05 14:31 | Emergency (ER) | payer SELFPAY | END 2019-07-05 14:59 | disposition home or self-care (01) | LOC: ERS 14:31 | DX: T78.40XA Allergy, unspecified, initial encounter (principal); I10 Essential (primary) hypertension; F41.9 Anxiety disorder, unspecified; F31.9 Bipolar disorder, unspecified; F20.9 Schizophrenia, unspecified; F17.210 Nicotine dependence, cigarettes, uncomplicated | CPT/HCPCS: 99283 ==

== ENCOUNTER 2019-11-26 16:40 | Emergency (ER) | payer SELFPAY ==
[2019-11-26 17:52] LABS: #Lymphocytes 1.3 thou/uL (1.20-3.40); #Monocytes 0.3 thou/uL (0.11-0.59); %Basophils 0.3 % (0.0-1.0); %Eosinophils 0.4 % (0.0-10.0); %Monocytes 6.1 % (0.0-10.0); %Neutrophils 65.2 % (42.0-75.0); Hemoglobin 10.9 g/dL (12.0-16.0); Mean Corpuscular HGB CONC 29.9 g/dL (32.0-36.0); Mean Corpuscular Hemoglobin 27.9 pg (27.0-31.0); Mean Corpuscular Volume 93.3 fL (78.0-98.0); Mean Platelet Volume 7.4 fL (7.4-10.4); Platelet Count 208 thou/uL (130-400); RBC Distribution Width 11.3 % (11.5-14.5); Red Blood Cell (RBC) Count 3.91 mill/uL (4.20-5.40); White Blood Cell (WBC) Count 4.5 thou/uL (4.8-10.8)
[2019-11-26 18:12] LABS: Anion Gap 14 mmol/L (10-20); BUN (Urea Nitrogen) 9 mg/dL (7.0-18.7); Calc. Creatinine Clearance 0 mL/min (70-130); Calcium 9.2 mg/dL (7.8-10.44); Carbon Dioxide 23 mmol/L (22-29); Chloride 105 mmol/L (98-107); Estimated GFR-MDRD 77; Glucose 95 mg/dL (70-105); Potassium 3.6 mmol/L (3.5-5.1); Sodium 138 mmol/L (136-145)
[2019-11-26 18:13] LABS: MDiff Complete? YES; Platelet Morphology Comment Appears Adequate; Polychromasia SLIGHT = 2-3 cells (100X) (0-2/hpf)
== END 2019-11-26 18:45 | disposition home or self-care (01) ==
LOC: ERS 16:40 → MERGE 16:40 → ERS 18:45
DX: O20.0 Threatened abortion (principal); O99.341 Other mental disorders complicating pregnancy, first trimester; F41.9 Anxiety disorder, unspecified; F31.9 Bipolar disorder, unspecified; O10.911 Unspecified pre-existing hypertension complicating pregnancy, first trimester; Z3A.01 Less than 8 weeks gestation of pregnancy
CPT/HCPCS: 36415; 80048; 84702; 85025; 99284

== ENCOUNTER 2020-06-15 13:34 | Emergency (ER) | payer MEDICAID | END 2020-06-15 15:43 | disposition home or self-care (01) | LOC: ERS 13:34 | DX: O99.891 Other specified diseases and conditions complicating pregnancy (principal); H11.32 Conjunctival hemorrhage, left eye; I10 Essential (primary) hypertension; O99.341 Other mental disorders complicating pregnancy, first trimester; F41.9 Anxiety disorder, unspecified; F31.9 Bipolar disorder, unspecified; Z87.891 Personal history of nicotine dependence; Z3A.13 13 weeks gestation of pregnancy | CPT/HCPCS: 99282 ==

== ENCOUNTER 2021-09-16 21:24 | Emergency (ER) | payer OTHER ==
[2021-09-17 13:49] LABS: SARS-CoV-2 PCR by NAA DETECTED (NotDetected)
== END 2021-09-16 22:27 | disposition home or self-care (01) ==
LOC: ERS 21:24
DX: U07.1 COVID-19 (principal); I10 Essential (primary) hypertension; M19.90 Unspecified osteoarthritis, unspecified site; Z87.891 Personal history of nicotine dependence
CPT/HCPCS: 99284; U0003; U0005

== ENCOUNTER 2023-07-11 08:57 | Emergency (ER) | payer OTHER ==
[2023-07-11 09:34] LABS: #Monocytes 0.4 thou/uL (0.11-0.59); #Neutrophils 3.4 thou/uL (1.40-6.50); %Basophils 0.6 % (0.0-1.0); %Eosinophils 0.4 % (0.0-10.0); %Lymphocytes 44.3 % (21.0-51.0); %Monocytes 5.9 % (0.0-10.0); %Neutrophils 48.5 % (42.0-75.0); Hematocrit 35.2 % (36.0-47.0); Hemoglobin 12.5 g/dL (12.0-16.0); Mean Corpuscular HGB CONC 35.5 g/dL (32.0-36.0); Mean Corpuscular Hemoglobin 32.5 pg (27.0-31.0); Mean Corpuscular Volume 91.4 fl (78.0-98.0); Mean Platelet Volume 9.5 fL (7.4-10.4); Platelet Count 249 10x3/uL (130-400); RBC Distribution Width 12.2 % (11.5-14.5); Red Blood Cell (RBC) Count 3.85 mill/uL (4.20-5.40); White Blood Cell (WBC) Count 7.1 10x3/uL (4.8-10.8)
[2023-07-11 09:56] LABS: ALT (SGPT) 12 U/L (8-55); AST (SGOT) 14 U/L (5-34); Albumin 4.8 g/dL (3.5-5.0); Alkaline Phosphatase 50 U/L (40-110); Anion Gap 11 mmol/L (10-20); BUN (Urea Nitrogen) 10 mg/dL (7.0-18.7); Bilirubin, Total 1.3 mg/dL (0.2-1.2); Calc. Creatinine Clearance 0 mL/min (70-130); Calcium 9.9 mg/dL (7.8-10.44); Carbon Dioxide 26 mmol/L (22-29); Chloride 102 mmol/L (98-107); Estimated GFR 95; Globulin 2.7 g/dL (2.4-3.5); Glucose 80 mg/dL (70-105); Potassium 4.2 mmol/L (3.5-5.1); Protein, Total 7.5 g/dL (6.0-8.3); Sodium 135 mmol/L (136-145)
== END 2023-07-11 11:50 | disposition home or self-care (01) ==
LOC: ERS 08:57
DX: O03.4 Incomplete spontaneous abortion without complication (principal); I10 Essential (primary) hypertension; Z87.891 Personal history of nicotine dependence; Z3A.01 Less than 8 weeks gestation of pregnancy
CPT/HCPCS: 36415; 76801; 80053; 84702; 85025; 86900; 86901

== ENCOUNTER 2024-06-15 16:54 | Emergency (ER) | payer MEDICAID | END 2024-06-15 17:40 | LOC: ERS 16:54 | DX: O46.93 Antepartum hemorrhage, unspecified, third trimester (principal); Z3A.32 32 weeks gestation of pregnancy | CPT/HCPCS: 99283 ==

== ENCOUNTER 2024-07-15 15:45 | Emergency (ER) | payer MEDICAID | END 2024-07-15 17:22 | disposition left against medical advice (07) | LOC: ERS 15:45 | DX: Z53.21 Procedure and treatment not carried out due to patient leaving prior to being seen by health care provider (principal) ==

== ENCOUNTER 2025-07-17 18:38 | Emergency (ER) | payer MEDICAID ==
[2025-07-17] MEDS ORDERED: Dexamethasone 10 MG/ML VIAL ONE (20:33)
[2025-07-17] MEDS ORDERED: Ketorolac Tromethamine 30 MG (1 mL) VIAL ONE (20:33)
== END 2025-07-17 20:49 | disposition home or self-care (01) ==
LOC: ERS 18:38
DX: B34.9 Viral infection, unspecified (principal)
CPT/HCPCS: 87428; 96372; 99283; J1100; J1885

== ENCOUNTER 2025-07-18 10:19 | Emergency (ER) | payer MEDICAID ==
[2025-07-18 11:16] LABS: Bacteria/HPF 3+ HPF (None Seen); CAUTI Indications for Culture Dysuria,urgency,freq; Glucose, Urine (Dipstick) Normal (Negative); Leukocyte 75 Leu/uL (Negative); Protein, Urine (Dipstick) 20 mg/dL (Neg-Trace); RBC/HPF 0-3 HPF (0-3); Specific Gravity, Urine 1.026 (1.002-1.036); WBC/HPF 21-50 HPF (0-3)
[2025-07-18 11:17] LABS: Urine Culture Reflex Yes Yes
[2025-07-18 11:19] LABS: #Basophils Less than 0.03 10x3/uL (0.0-0.2); #Eosinophils Less than 0.03 10x3/uL (0.0-0.7); #Monocytes 0.99 10x3/uL (0.11-0.59); #Neutrophils 10.05 10x3/uL (1.40-6.50); %Basophils 0.1 % (0.0-1.0); %Eosinophils 0.0 % (0.0-10.0); %Lymphocytes 10.2 % (21.0-51.0); %Monocytes 8.0 % (0.0-10.0); %Neutrophils 81.3 % (42.0-75.0); Hematocrit 31.4 % (36.0-47.0); Hemoglobin 11.0 g/dL (12.0-16.0); Mean Corpuscular Hemoglobin 31.5 pg (27.0-31.0); Mean Corpuscular Volume 90.0 fL (78.0-98.0); Platelet Count 267 10x3/uL (130-400); Red Blood Cell (RBC) Count 3.49 mill/uL (4.20-5.40); White Blood Cell (WBC) Count 12.36 10x3/uL (4.8-10.8)
[2025-07-18 11:31] LABS: ALT (SGPT) 19 U/L (Less than 34); AST (SGOT) 19 U/L (11-34); Albumin 3.8 g/dL (3.1-4.5); Alkaline Phosphatase 64 U/L (40-110); Anion Gap 14 mmol/L (10-20); BUN (Urea Nitrogen) 13 mg/dL (7.0-18.7); Bilirubin, Total 0.3 mg/dL (0.3-1.2); Calc. Creatinine Clearance 0 mL/min (70-130); Calcium 9.0 mg/dL (7.8-10.44); Carbon Dioxide 20 mmol/L (22-29); Chloride 103 mmol/L (98-107); Globulin 3.6 g/dL (2.4-3.5); Glucose 89 mg/dL (70-105); Lipase 20 U/L (8-78); Potassium 3.5 mmol/L (3.5-5.1); Sodium 133 mmol/L (136-145)
== END 2025-07-18 13:20 | disposition home or self-care (01) ==
LOC: ERS 10:19
DX: O20.0 Threatened abortion (principal); O23.41 Unspecified infection of urinary tract in pregnancy, first trimester; N39.0 Urinary tract infection, site not specified; Z3A.01 Less than 8 weeks gestation of pregnancy
CPT/HCPCS: 36415; 76801; 76817; 80053; 81001; 83690; 84702; 85025; 87077; 87086